=== PATIENT | male | born 1965 | race African-American/Black ===

== ENCOUNTER 2019-05-31 10:05 | Emergency (ER) | payer OTHER ==
[~2019-05-31] VITALS: Ht 175.3 cm; Wt 81.7 kg
[~2019-05-31 10:05] MED LIST: AMOXICILLIN 50500 M1 PO; CARISOPRODOL 3350 MG PO; COENZYME Q10100 M2 PO; FLEXERIL PO; IBUPROFEN 800800 MG PO; LIPITOR 20 MG T20 M1 PO; METHYLPREDNISOLO4 MG PO; NAPROSYN500 MG PO; NOHOMEMEDICATIONS; NORCO 5-325 TA1 EACH PO; NORFLEX100 MG PO; ROBAXIN 750 MG750 M1 PO; TRAMADOL 50 MG50 MG PO; ULTRAM 50MG TAB50 MG PO; VALIUM5 MG PO
[2019-05-31] MEDS ORDERED: ACYCLOVIR 400400 MG PO (10:21)
[2019-05-31] MEDS ORDERED: CLARITIN-D 121 EAC1 PO (10:48)
[2019-05-31] MEDS ORDERED: FLONASE 0.05%50 MCG NASAL (10:48)
[2019-05-31 11:16] VITALS: BP 128/89
== END 2019-05-31 11:13 | disposition home or self-care (01) ==
LOC: ER 10:05
DX: J02.9 Acute pharyngitis, unspecified (principal); R09.82 Postnasal drip